=== PATIENT | female | born 1990 | race Caucasian/White ===

== ENCOUNTER 2021-12-25 07:36 | Outpatient (CLI) | payer BC, SELFPAY ==
--- NOTE | 2021-12-25 07:45 | CRLHL7_ITS ---
For Patients: As a result of the Cures Act, medical imaging exams and procedure reports are released immediately into your electronic medical record. You may view this report before your referring provider. If you have questions, please contact your health care provider. BILATERAL DIGITAL DIAGNOSTIC MAMMOGRAM WITH COMPUTER-AIDED DETECTION AND TOMOSYNTHESIS, 12/25/2021 BILATERAL BREAST ULTRASOUND, 12/25/2021 CLINICAL HISTORY: BILATERAL breast masses. COMPARISON: 06/09/2018. TECHNIQUE: Digital BILATERAL mammogram in four projections. Real-time ultrasound imaging of BILATERAL breast with imaging documentation. BREAST COMPOSITION: The breasts are extremely dense, which lowers the sensitivity of mammography. FINDINGS: 3D CC/MLO mammogram submitted BILATERALLY. Dense fibroglandular tissue noted. No architectural distortion or suspicious masses. No suspicious calcifications or adenopathy. Targeted ultrasound of both breasts performed in the areas of concern extending from 11-1 o`clock BILATERALLY, 1-5 cm from the nipple. Normal dense tissue present. No fibrocystic change or solid mass. No fluid collection or abscess. No galactocele. IMPRESSION: Normal BILATERAL dense breast tissue without malignancy, infection or fluid collection. RECOMMENDATIONS: Clinical follow-up. Age appropriate screening mammography. BI-RADS: 2. Benign findings. Results and recommendations discussed with the patient. Dictated by Jordan Olivier MD @ 12/25/2021 9:12:29 AM JR/Dictated by: Jordan Olivier MD @ 12/25/2021 9:12:00 AM (Electronically Signed)
--- NOTE | 2021-12-25 08:15 | CRLHL7_ITS ---
For Patients: As a result of the Cures Act, medical imaging exams and procedure reports are released immediately into your electronic medical record. You may view this report before your referring provider. If you have questions, please contact your health care provider. PLEASE SEE BILATERAL DIAGNOSTIC MAMMOGRAM OF SAME DAY. [email or web address] SANTOS/Dictated by: Jordan Olivier MD @ 12/25/2021 9:12:00 AM (Electronically Signed)
== END 2021-12-25 07:37 | disposition home or self-care (01) ==
LOC: MAMMO 07:39
PROVIDERS: Visit Provider Family Medicine
DX: N63.10 Unspecified lump in the right breast, unspecified quadrant (principal); N63.20 Unspecified lump in the left breast, unspecified quadrant; R92.2 Inconclusive mammogram
CPT/HCPCS: 76642; 77066; G0279